=== PATIENT | female | born 1990 ===

== ENCOUNTER 2017-10-31 00:06 | Emergency (ER) | payer MEDICAID ==
[2017-10-31] MEDS ORDERED: Ketorolac 60 MG/2 ML SDV IM ONE (00:22)
[2017-10-31] MEDS ORDERED: Ondansetron 4 MG Tab.DIS PO ONE (00:23)
--- NOTE | 2017-11-03 07:36 | EDM.PDOC ---
ED HPI GENERAL MEDICAL PROBLEM - General Chief Complaint: General Stated Complaint: knee pain, low back pain Time Seen by Provider: 10/31/17 00:10 Source of Information: Reports: Patient History Limitations: Reports: No Limitations - History of Present Illness INITIAL COMMENTS - FREE TEXT/NARRATIVE: Pt. presents to ER with acute on chronic knee and low back pain. Pt. states that she has chronic issues with pain, and started a new job that requires a lot of standing, which exacerbated the discomfort. She denies any saddle anesthesia or incontinence. She states that she did not experience any trauma, and feels that the discomfort is due to standing/overuse. Onset: Today Bilateral Knee Pain Score (Numeric/FACES): 10 - Related Data Allergies Allergy/AdvReac Type Severity Reaction Status Date / Time codeine Allergy Rash Verified 10/31/17 00:10 antidepressants Allergy Seizure Uncoded 10/31/17 00:10 Home Meds: Home Meds . [Unable to Verify Home Med List] 10/31/17 [History] Social & Family History - Tobacco Use Smoking Status *Q: Current Every Day Smoker Years of Tobacco use: 18 Packs/Tins Daily: 3 ED ROS GENERAL - Review of Systems Review Of Systems: See Below Constitutional: Reports: No Symptoms HEENT: Reports: No Symptoms Respiratory: Reports: No Symptoms Cardiovascular: Reports: No Symptoms Endocrine: Reports: No Symptoms GI/Abdominal: Reports: No Symptoms : Reports: No Symptoms Musculoskeletal: Reports: No Symptoms Skin: Reports: No Symptoms Neurological: Reports: No Symptoms Psychiatric: Reports: No Symptoms Hematologic/Lymphatic: Reports: No Symptoms Immunologic: Reports: No Symptoms ED EXAM, GENERAL - Physical Exam Exam: See Below Exam Limited By: No Limitations General Appearance: Alert, WD/WN, No Apparent Distress Head: Atraumatic, Normocephalic Respiratory/Chest: No Respiratory Distress, Lungs Clear, Normal Breath Sounds, No Accessory Muscle Use, Chest Non-Tender Cardiovascular: Normal Peripheral Pulses, Regular Rate, Rhythm, No Edema, No Gallop, No JVD, No Murmur, No Rub Peripheral Pulses: 3+: Dorsalis Pedis (L), Dorsalis Pedis (R), 4+: Posterior Tibial (L), Posterior Tibial (R) GI/Abdominal: Normal Bowel Sounds, Soft, Non-Tender, No Organomegaly, No Distention, No Abnormal Bruit, No Mass Back Exam: Normal Inspection, Full Range of Motion, NT Extremities: Normal Inspection, Normal Range of Motion, Non-Tender, Normal Capillary Refill, No Pedal Edema Neurological: Alert, Oriented, CN II-XII Intact, Normal Cognition, Normal Gait, Normal Reflexes, No Motor/Sensory Deficits Course - Vital Signs Last Recorded V/S: Last Vital Signs Temp 36.7 C 10/31/17 00:16 Pulse 84 10/31/17 00:16 Resp 18 10/31/17 00:16 BP 112/67 10/31/17 00:16 Pulse Ox 98 10/31/17 00:16 - Orders/Labs/Meds Meds: Medications Discontinued Medications Generic Name Dose Route Start Last Admin Trade Name Jeff PRN Reason Stop Dose Admin Ketorolac Tromethamine 60 mg 10/31/17 00:22 10/31/17 00:37 Toradol IM 10/31/17 00:23 60 mg ONETIME ONE Administration Ondansetron HCl 4 mg 10/31/17 00:23 10/31/17 00:33 Zofran Odt PO 10/31/17 00:24 4 mg ONETIME ONE Administration Orphenadrine Citrate 60 mg 10/31/17 00:23 10/31/17 00:37 Norflex IM 10/31/17 00:24 60 mg ONETIME ONE Administration Departure - Departure Time of Disposition: 01:15 Disposition: Home, Self-Care 01 Condition: Good Clinical Impression: Back pain - Discharge Information Instructions: Chronic Back Pain Referrals: PCP,Unobtain [Primary Care Provider] - Forms: ED Department Discharge Additional Instructions: Ice painful areas for 10-15 min every 1-2 hours. Continue with Ibuprofen 800mg every 8 hours, starting tomorrow AM. Follow-up in clinic with PCP.
== END 2017-10-31 00:48 | disposition home or self-care (01) ==
LOC: VM.ED 00:06
DX: M54.5 Low back pain (principal); M25.561 Pain in right knee; M25.562 Pain in left knee; F17.210 Nicotine dependence, cigarettes, uncomplicated; Z88.5 Allergy status to narcotic agent; Z88.8 Allergy status to other drugs, medicaments and biological substances
CPT/HCPCS: 96372; 99283; A9270; J1885; J2360